=== PATIENT | male | born 1935 | race Caucasian/White ===

== ENCOUNTER 2017-03-13 20:48 | Inpatient (IN) ==
[2017-03-13] MEDS ORDERED: Ipratropium/Albuterol Neb 3 ML IH STA (23:21)
[2017-03-13] MEDS ORDERED: Naloxone 0.4 MG/ML INJ IVP PRN (23:24)
--- NOTE | 2017-03-13 23:24 | Internal Med History&Physical ---
Date of Encounter: 03/13/17 Time of Encounter: 23:24 Assessment and Plan (1) Acute exacerbation of chronic obstructive pulmonary disease (COPD) Current visit: Yes Status: Acute Treat with the nebs, Solu-Medrol, mucinex and azithromycin. Will consult line installer, for further advice and outpatient follow up. (2) Acute respiratory failure with hypoxia Current visit: Yes Status: Acute Secondary to acute exacerbation of COPD. Treat with Oxygen, and treat COPD exacerbation. He will need to be evaluated for home oxygen, prior to discharge (3) Hypertension Current visit: Yes Status: Chronic COntinue home medications, after the meds verified Qualifiers: Hypertension type: essential hypertension Qualified Code(s): I10 - Essential (primary) hypertension (4) Diabetes mellitus Current visit: Yes Status: Chronic sliding scale insulin Qualifiers: Diabetes mellitus type: type 2 Diabetes mellitus complication status: with unspecified complications Diabetes mellitus skilled nursing insulin use: without side show entertainer use Qualified Code(s): E11.8 - Type 2 diabetes mellitus with unspecified complications (5) DVT prophylaxis Current visit: Yes Status: Acute [facility] Internal Medicine - H&P: HPI Chief complaint: Shortness of breath Admitted From: Emergency Dept Plans for Post Hospital Care: Home History of present illness: Mr. White is a 82 year old male With past medical h/o COPD for several years ( ex-smoker, prior h/o exposure to paint spray) does not follow with line installer / [facility], [facility]N, diabetes. He presents to the ER at [facility] with h/o shortness of breath since this morning. Shortness of breath at rest, associated with wheezing, cough with whitish sputum. He denies chest pain, fever, chills, nausea, vomiting, abdominal pain, dysuria, hematuria, changes in bowel habits. Patient was treated in route with Solu-Medrol and 1 DuoNeb. He was evaluated in the ER - pulse ox was in the 70s. He was treated with levofloxacin, azithromycin, duonebs. He was treated with BiPAP, with improvement of symptoms. He is admitted to the hospitalist service for further management. Past Med Surg Social Fam HX - Past Medical History Medical history: COPD, diabetes, hyperlipidemia, hypertension, other Psychiatric history: anxiety, depression - Social History Smoking Status: Former smoker Smokeless Tobacco Status: No Alcohol use: occasionally, recent Drug use: none - Additional Family History Additional family history: Family Hx reviewed and is non-contributory to current admission Internal Medicine - H&P: Meds Albuterol Sulfate [Albuterol Inhaler] 2 puff IH Q4HR 01/18/16 [History] Ascorbic Acid [Vitamin C] 1,000 mg PO DAILY 01/18/16 [History] Atorvastatin [Lipitor] 40 mg PO HS 01/18/16 [History] Cholecalciferol (Vitamin D3) [Vitamin D] 1,000 unit PO DAILY 01/18/16 [History] Fluticasone/Salmeterol [Advair 500-50 Diskus] 1 each IH BID 01/18/16 [History] Formoterol Fumarate [Foradil] 12 mcg IH BIDR 01/18/16 [History] Ipratropium/Albuterol Neb [Duoneb] 3 ml IH Q6HR 01/18/16 [History] Naproxen Sodium [Aleve] 220 mg PO BID 01/18/16 [History] Ruth-3/Dha/Epa/Fish Oil [Fish Oil] 1,000 mg PO BID 01/18/16 [History] Vitamin E (Dl,Tocopheryl Acet) [Vitamin E] 400 unit PO DAILY 01/18/16 [History] amLODIPine [Norvasc] 10 mg PO DAILY 01/18/16 [History] Allergies Penicillins Allergy (Verified 01/22/17 22:38) See Comments All Systems PM: A 10-system review of systems was performed and is negative for pertinent findings except as documented above in the HPI. - Constitutional Vitals: Temp Pulse Resp BP 98.1 F 102 26 141/77 03/13/17 22:13 03/13/17 22:13 03/13/17 22:13 03/13/17 22:13 Exam: General: Not in acute pain at the time of my evaluation. Tachypneic HEENT: Oral mucosa is moist. No conjunctival palor or scleral icterus Neck: No obvious neck swellings Lungs: B/L air entry present. Occasional wheeze present Cardiac: Regular rate and rhythm. No significant murmurs Abdomen: Soft, non tender. Bowel sounds present Genitourinary: No mills catheter Neurological: Alert and oriented. No gross localizing deficits Psych: Not aggressive or agitated Extremities: B/L leg edema present Skin: No generalized rash Internal Med - H&P Results - Labs CBC & Chem 7: 03/14/17 02:59 03/14/17 02:59 Labs: Labs reviewed. Normal CBC, BMP - EKG Data -: EKG Interpreted by Myself EKG shows normal: sinus rhythm Rate: tachycardia - Impressions Chest x-ray reported emphysema. No acute confluent pneumonia
[2017-03-13] MEDS ORDERED: Albuterol 2.5 MG/3 ML NEBULIZER IH PRN (23:30)
[2017-03-14] MEDS: methylPREDNISolone 125 MG/2 ML VIAL IVP SCH ×4 (00:18→23:59)
[2017-03-14] MEDS ORDERED: *HR* LORazepam 2 MG/ML VIAL IVP ONE (00:46)
[2017-03-14] MEDS ORDERED: Dextrose Gel 15 GM PO PRN ×2 (00:48)
[2017-03-14] MEDS ORDERED: *HR* Dextrose 50 % in Water (Syg) 50 ML SYRINGE IVP PRN (00:48)
[2017-03-14] MEDS ORDERED: D5% in Water 1,000 ML IVC PRN (00:48)
[2017-03-14 03:51] LABS: Basophils % 0.1 %; Hematocrit 35.6 % (37.5-50.1); Hemoglobin 12.1 g/dL (12.9-16.9); Immature Granulocytes % 0.6 % (0-4); Lymphocytes # 0.3 K/mcL (0.6-4.6); Lymphocytes % 2.8 %; Mean Corpuscular Hemoglobin 30.6 pg (28.0-33.3); Mean Corpuscular Volume 90.1 fL (83.0-100.0); Mean Platelet Volume 9.6 fL (9.4-12.4); Monocytes # 0.1 K/mcL (0.0-1.3); Monocytes % 1.1 %; Neutrophils # 10.6 K/mcL (1.6-8.9); Platelet Count 218 K/mcL (140-400); Red Blood Count 3.95 M/mcL (4.19-5.50); Red Cell Distribution Width 13.9 % (11.5-14.5); Segmented Neutrophils % 95.4 %
[2017-03-14 04:10] LABS: BUN/Creatinine Ratio 20 (6-26); Blood Urea Nitrogen 24 mg/dL (8-26); Calcium 8.6 mg/dL (8.6-10.8); Carbon Dioxide 20 mEq/L (19-29); Chloride 106 mEq/L (98-109); Glucose 160 mg/dL (70-99); Magnesium 1.6 mg/dL (1.6-2.6); Osmolality,Calculated 287 (280-300); Sodium 135 mEq/L (136-145); eGFR For African Americans > 60 (> 60); eGFR For Non-African Americans 58 (> 60)
[2017-03-14] MEDS: Ipratropium/Albuterol Neb 3 ML IH SCH ×4 (05:04→23:33)
[2017-03-14] MEDS: *HR* Enoxaparin 40 MG/0.4 ML SYRINGE SQ SCH (06:39)
[2017-03-14] MEDS: Insulin LISPRO 300 UNITS/3 ML VIAL SQ SCH ×3 (08:51→16:22)
--- NOTE | 2017-03-14 15:39 | Internal Med Progress Note ---
<Ruddy Shea - Last Filed: 03/14/17 15:36> Date of Encounter: 03/14/17 Time of Encounter: 09:00 - Assessment and plan (1) Acute respiratory failure with hypoxia Current Visit: Yes Status: Acute Assessment and plan: Patient is known history of COPD for which she uses Symbicort and albuterol inhalers at home. He is not on home oxygen. He was admitted to the emergency department with oxygen saturation of 70%. He required BiPAP initially was treated with Solu-Medrol and DuoNeb scheduled started on azithromycin for antibiotic coverage. He is now on 3 L nasal cannula oxygen and improving. Plan: - Continue scheduled DuoNeb's and albuterol inhalers - Continue Symbicort - Continue azithromycin antibiotic coverage - Continue to wean oxygen as tolerated - Continue IV Solu-Medrol (2) Acute exacerbation of chronic obstructive pulmonary disease (COPD) Current Visit: Yes Status: Acute Assessment and plan: Patient is ex-smoker prior history to spray paints. No history of COPD for which she is treated in the outpatient setting for. - Patient states this is for COPD exacerbation requiring hospitalization Plan: - Continue treatment as above (3) Hypertension Current Visit: Yes Status: Chronic Assessment and plan: Current blood pressures are stable. Plan: Restart home dose of amlodipine. Qualifiers: Hypertension type: essential hypertension Qualified Code(s): I10 - Essential (primary) hypertension (4) Diabetes mellitus Current Visit: Yes Status: Chronic Assessment and plan: Current glucose is stable. Gabbi hyperglycemia after starting IV Solu-Medrol, will address effectively. Plan: - Continue before meals and at bedtime glucose checks - Continue low-dose insulin sliding scale and adjust as necessary. Qualifiers: Diabetes mellitus type: type 2 Diabetes mellitus complication status: with unspecified complications Diabetes mellitus buttermaker continuous churn insulin use: without fci use Qualified Code(s): E11.8 - Type 2 diabetes mellitus with unspecified complications (5) DVT prophylaxis Current Visit: Yes Status: Acute Assessment and plan: Lovenox 40 mg subcutaneous daily - Subjective Interval history: Mr. White 82-year-old male known history of COPD he has been seen and evaluated patient bedside this morning. He is in stable condition with no acute distress. He does feel short of breath but feels much improved since admission. He says he has never experienced symptoms like this before but did have dyspnea, increased sputum production which was clear and white and continues to have occasional sputum production. He denies any nausea vomiting diarrhea constipation or any chest pain. He is tolerating current therapy and is at 3 L of nasal cane oxygen which he says he is not on any home oxygen prior. He does uses Symbicort inhaler as prescribed twice a day. He has a albuterol nebulizer home which she uses occasionally. - Constitutional Vitals: Temp Pulse Resp BP Pulse Ox 98.1 F 98 20 157/67 94 03/14/17 11:10 03/14/17 11:10 03/14/17 11:27 03/14/17 11:10 03/14/17 11:27 Exam: General: Patient alert, awake, oriented 3, interactive, in no acute distress HEENT: Normocephalic, atraumatic, pupils equal reactive to light, nasal cavity patent and open septum median position, oral mucosa moist, uvula midline, neck supple trachea midline no palpable lymphadenopathy, no thyromegaly. Chest: Symmetric bilateral correlating with respiratory effort, effort nonlabored. Cardiac: Regular rate and rhythm, positive S1, S2, no bruits appreciated bilateral carotids, Radial pulses 2+ bilateral, posterior tibial and dorsal pedal pulses 2+ bilateral. Respiratory: Diffusely diminished bronchovesicular breath sounds with mild expiratory wheeze. Abdomen: Soft, nontender, positive bowel sounds, no palpable masses appreciated on examination Extremities: Symmetric bilateral, no erythema or edema, patient moving all 4 extremities spontaneously. Neurologic: No focal deficits appreciated on examination. Face symmetric, muscle strength symmetric bilateral upper and lower extremities. Internal Medicine: Result - Labs CBC & Chem 7: 03/14/17 02:59 03/14/17 02:59 Labs: Short CBC 03/14/17 Range/Units 02:59 WBC 11.1 (4.3-11.1) K/mcL Hgb 12.1 L D (12.9-16.9) g/dL Hct 35.6 L (37.5-50.1) % Plt Count 218 (140-400) K/mcL Neutrophils # 10.6 H (1.6-8.9) K/mcL BMP 03/14/17 02:59 Sodium 135 L Potassium 4.0 Chloride 106 Carbon Dioxide 20 BUN 24 Creatinine 1.20 Glucose 160 H Calcium 8.6 Consult Discharge Plan - Plan Referrals: Tim Perez MD [Primary Care Provider] - <Leif Lozano P - Last Filed: 03/14/17 17:28> Date of Encounter: 03/14/17 - Constitutional Vitals: Temp Pulse Resp BP Pulse Ox 97.6 F 110 16 181/77 96 03/14/17 16:22 03/14/17 16:22 03/14/17 16:22 03/14/17 16:22 03/14/17 16:22 Internal Medicine: Result - Labs CBC & Chem 7: 03/14/17 02:59 03/14/17 02:59 Labs: Short CBC 03/14/17 Range/Units 02:59 WBC 11.1 (4.3-11.1) K/mcL Hgb 12.1 L D (12.9-16.9) g/dL Hct 35.6 L (37.5-50.1) % Plt Count 218 (140-400) K/mcL Neutrophils # 10.6 H (1.6-8.9) K/mcL BMP 03/14/17 02:59 Sodium 135 L Potassium 4.0 Chloride 106 Carbon Dioxide 20 BUN 24 Creatinine 1.20 Glucose 160 H Calcium 8.6 - Attending Attestation I examined this patient and my medical decision-making was reviewed with the AUTOMATIC EDGER/PA/Advanced Practice Nurse/Resident Physician. I agree with the documented findings, disposition and treatment plan as described except to the extent set forth below.
[2017-03-14] MEDS: Budesonide/Formoterol 160/4.5 MDI IH SCH ×2 (16:01→23:33)
[2017-03-14] MEDS: amLODIPine 5 MG TABLET PO SCH (16:22)
[2017-03-14] MEDS: Azithromycin 250 MG TABLET PO SCH (20:17)
[2017-03-14] MEDS ORDERED: Insulin LISPRO 300 UNITS/3 ML VIAL SQ SCH (21:00)
[2017-03-15] MEDS: Ipratropium/Albuterol Neb 3 ML IH SCH ×2 (04:49→10:39)
[2017-03-15 04:57] LABS: Basophils % 0.1 %; Hematocrit 36.4 % (37.5-50.1); Lymphocytes # 0.4 K/mcL (0.6-4.6); Lymphocytes % 2.6 %; Mean Corpuscular Hemoglobin 30.2 pg (28.0-33.3); Mean Corpuscular Volume 91.5 fL (83.0-100.0); Mean Platelet Volume 9.6 fL (9.4-12.4); Monocytes # 0.6 K/mcL (0.0-1.3); Monocytes % 3.5 %; Neutrophils # 14.7 K/mcL (1.6-8.9); Platelet Count 228 K/mcL (140-400); Red Blood Count 3.98 M/mcL (4.19-5.50); Segmented Neutrophils % 92.8 %
[2017-03-15 05:19] LABS: Alanine Aminotransferase 21 Units/L (0-55); Albumin 3.5 g/dL (3.5-5.0); Albumin/Globulin Ratio 1.1 (1.1-2.2); Alkaline Phosphatase 53 Units/L (38-126); Aspartate Amino Transferase 47 Units/L (5-34); BUN/Creatinine Ratio 27 (6-26); Bilirubin,Total 0.2 mg/dL (0.2-1.2); Calcium 9.5 mg/dL (8.6-10.8); Carbon Dioxide 20 mEq/L (19-29); Chloride 108 mEq/L (98-109); Globulin 3.1 g/dL (2.4-3.5); Glucose 146 mg/dL (70-99); Osmolality,Calculated 295 (280-300); Sodium 137 mEq/L (136-145); Total Protein 6.6 g/dL (6.0-8.3); eGFR For African Americans > 60 (> 60); eGFR For Non-African Americans 52 (> 60)
[2017-03-15 05:21] LABS: Blood Urea Nitrogen 35 mg/dL (8-26)
[2017-03-15] MEDS: *HR* Enoxaparin 40 MG/0.4 ML SYRINGE SQ SCH (06:03)
[2017-03-15] MEDS: methylPREDNISolone 125 MG/2 ML VIAL IVP SCH (08:18)
[2017-03-15] MEDS: amLODIPine 5 MG TABLET PO SCH (08:19)
[2017-03-15] MEDS: Azithromycin 250 MG TABLET PO SCH (08:19)
--- NOTE | 2017-03-15 08:26 | Internal Med Progress Note ---
<Ruddy Shea - Last Filed: 03/15/17 08:40> Date of Encounter: 03/15/17 Time of Encounter: 08:25 - Assessment and plan (1) Acute respiratory failure with hypoxia Current Visit: Yes Status: Acute Assessment and plan: Patient is known history of COPD for which she uses Symbicort and albuterol inhalers at home. He is not on home oxygen. He was admitted to the emergency department with oxygen saturation of 70%. He required BiPAP initially was treated with Solu-Medrol and DuoNeb scheduled started on azithromycin for antibiotic coverage. He is now on 3 L nasal cannula oxygen and improving. 03/15/2017: Patient improving clinically, decreased oxygen requirements. Chest x-ray does not show any acute findings of pneumonia, patient does have an elevated WBC count but this is also in the setting of IV Solu-Medrol. The patient denies fevers, chills, sweating or chest discomfort. Patient ambulating in room. Would like to walk in the halls today. Plan: - Continue scheduled DuoNeb's and albuterol inhalers - Continue Symbicort - Continue azithromycin antibiotic coverage - Continue to wean oxygen as tolerated - Continue IV Solu-Medrol (2) Acute exacerbation of chronic obstructive pulmonary disease (COPD) Current Visit: Yes Status: Acute Assessment and plan: Patient is ex-smoker prior history to spray paints. No history of COPD for which she is treated in the outpatient setting for. - Patient states this is for COPD exacerbation requiring hospitalization Plan: - Continue treatment as above (3) Hypertension Current Visit: Yes Status: Chronic Assessment and plan: Current blood pressures are stable. Plan: Continue home dose amlodipine Qualifiers: Hypertension type: essential hypertension Qualified Code(s): I10 - Essential (primary) hypertension (4) Diabetes mellitus Current Visit: Yes Status: Chronic Assessment and plan: Current glucose is stable. Glucose roughly 128 this morning, currently on IV Solu-Medrol will continue to monitor carefully. Plan: - Continue before meals and at bedtime glucose checks - Continue low-dose insulin sliding scale and adjust as necessary. Qualifiers: Diabetes mellitus type: type 2 Diabetes mellitus complication status: with unspecified complications Diabetes mellitus penitentiary insulin use: without penitentiary use Qualified Code(s): E11.8 - Type 2 diabetes mellitus with unspecified complications (5) DVT prophylaxis Current Visit: Yes Status: Acute Assessment and plan: Lovenox 40 mg subcutaneous daily - Subjective Interval history: Mr. White 82-year-old male known history of COPD he has been seen and evaluated patient bedside this morning. He is in stable condition with no acute distress. He feels that his breathing is much improved compared to yesterday, tolerating inhalers and IV steroids. He denies any fevers chills nausea vomiting diarrhea or sweating. He has no other concerns. He does have a cough which is not productive at this time. He is tolerating oral intake but is limiting his oral intake due to wanting to lose a little bit of weight. He said that he went to his primary care provider recently to try to obtain a oxygen tank because he feels short of breath with walking. He said that if he needs an oxygen tank at the time of discharge she would like to have one. Otherwise he is hoping to go home soon. - Constitutional Vitals: Temp Pulse Resp BP Pulse Ox 97.7 F 85 20 121/71 90 03/15/17 07:42 03/15/17 07:42 03/15/17 07:42 03/15/17 07:42 03/15/17 07:42 Exam: General: Patient alert, awake, oriented 3, interactive, in no acute distress HEENT: Normocephalic, atraumatic, pupils equal reactive to light, nasal cavity patent and open septum median position, oral mucosa moist, uvula midline, neck supple trachea midline no palpable lymphadenopathy, no thyromegaly. Chest: Symmetric bilateral correlating with respiratory effort, effort nonlabored. Cardiac: Regular rate and rhythm, positive S1, S2, no bruits appreciated bilateral carotids, Radial pulses 2+ bilateral, posterior tibial and dorsal pedal pulses 2+ bilateral. Respiratory: Clear to auscultation bilaterally. Abdomen: Soft, nontender, positive bowel sounds, no palpable masses appreciated on examination Extremities: Symmetric bilateral, no erythema or edema, patient moving all 4 extremities spontaneously. Neurologic: No focal deficits appreciated on examination. Face symmetric, muscle strength symmetric bilateral upper and lower extremities. Internal Medicine: Result - Labs CBC & Chem 7: 03/15/17 04:10 03/15/17 04:10 Labs: Short CBC 03/15/17 Range/Units 04:10 WBC 15.8 H (4.3-11.1) K/mcL Hgb 12.0 L (12.9-16.9) g/dL Hct 36.4 L (37.5-50.1) % Plt Count 228 (140-400) K/mcL Neutrophils # 14.7 H (1.6-8.9) K/mcL BMP 03/15/17 04:10 Sodium 137 Potassium 4.0 Chloride 108 Carbon Dioxide 20 BUN 35 H D Creatinine 1.31 H Glucose 146 H Calcium 9.5 Liver Function 03/15/17 Range/Units 04:10 Total Bilirubin 0.2 (0.2-1.2) mg/dL AST 47 H (5-34) Units/L ALT 21 (0-55) Units/L Alkaline Phosphatase 53 (38-126) Units/L Albumin 3.5 (3.5-5.0) g/dL Consult Discharge Plan - Plan Instructions: Prednisone (By mouth), Levofloxacin (By mouth), Budesonide/ Formoterol (By breathing), Acute Respiratory Distress Syndrome (DC), Chronic Obstructive Pulmonary Disease (DC) Additional Instructions: 1. Follow-up with your primary care provider in the next 3-5 days 2. Take all prescriptions as prescribed, any concerns or questions contact her primary care provider. 3. Return to the emergency department if: Referrals: Tim Perez MD [Primary Care Provider] - 03/25/17 10:30 am Prescriptions: Budesonide/Formoterol 160/4.5 [Symbicort 160/4.5] 2 puff IH BIDR #1 inhaler levoFLOXacin [Levaquin] 750 mg PO DAILY #6 tablet predniSONE [PredniSONE] 40 mg PO DAILY #5 tablet <Leif Lozano P - Last Filed: 03/15/17 12:28> Date of Encounter: 03/15/17 - Constitutional Vitals: Temp Pulse Resp BP Pulse Ox 97.3 F L 98 16 129/68 94 03/15/17 11:00 03/15/17 11:00 03/15/17 11:00 03/15/17 11:00 03/15/17 11:00 Internal Medicine: Result - Labs CBC & Chem 7: 03/15/17 04:10 03/15/17 04:10 Labs: Short CBC 03/15/17 Range/Units 04:10 WBC 15.8 H (4.3-11.1) K/mcL Hgb 12.0 L (12.9-16.9) g/dL Hct 36.4 L (37.5-50.1) % Plt Count 228 (140-400) K/mcL Neutrophils # 14.7 H (1.6-8.9) K/mcL BMP 03/15/17 04:10 Sodium 137 Potassium 4.0 Chloride 108 Carbon Dioxide 20 BUN 35 H D Creatinine 1.31 H Glucose 146 H Calcium 9.5 Liver Function 03/15/17 Range/Units 04:10 Total Bilirubin 0.2 (0.2-1.2) mg/dL AST 47 H (5-34) Units/L ALT 21 (0-55) Units/L Alkaline Phosphatase 53 (38-126) Units/L Albumin 3.5 (3.5-5.0) g/dL - Attending Attestation I examined this patient and my medical decision-making was reviewed with the HAMMERER/PA/Advanced Practice Nurse/Resident Physician. I agree with the documented findings, disposition and treatment plan as described except to the extent set forth below.
[2017-03-15] MEDS: Insulin LISPRO 300 UNITS/3 ML VIAL SQ SCH ×2 (08:29→11:34)
--- NOTE | 2017-03-15 09:42 | Discharge Summary ---
<Ruddy Shea - Last Filed: 03/15/17 09:45> Date of Encounter: 03/15/17 Time of Encounter: 09:40 - Discharge Diagnosis (1) Acute respiratory failure with hypoxia Priority: Primary Status: Acute (2) Acute exacerbation of chronic obstructive pulmonary disease (COPD) Priority: Primary Status: Acute (3) Hypertension Priority: Secondary Status: Chronic Qualifiers: Hypertension type: essential hypertension Qualified Code(s): I10 - Essential (primary) hypertension (4) Diabetes mellitus Priority: Secondary Status: Chronic Qualifiers: Diabetes mellitus type: type 2 Diabetes mellitus complication status: with unspecified complications Diabetes mellitus fdc insulin use: without fdc use Qualified Code(s): E11.8 - Type 2 diabetes mellitus with unspecified complications (5) DVT prophylaxis Priority: Secondary Status: Acute - Discharge Medications Prescriptions: Budesonide/Formoterol 160/4.5 [Symbicort 160/4.5] 2 puff IH BIDR #1 inhaler levoFLOXacin [Levaquin] 750 mg PO DAILY #6 tablet predniSONE [PredniSONE] 40 mg PO DAILY #5 tablet Home Medications: Albuterol Sulfate [Albuterol Inhaler] 2 puff IH Q4HR 01/18/16 [History] Ascorbic Acid [Vitamin C] 1,000 mg PO DAILY 01/18/16 [History] Cholecalciferol (Vitamin D3) [Vitamin D3] 1,000 unit PO DAILY 01/18/16 [History] Ipratropium/Albuterol Neb [Duoneb] 3 ml IH Q6HR 01/18/16 [History] Naproxen Sodium [Aleve] 220 mg PO BID PRN 01/18/16 [History] Beaman-3/Dha/Epa/Fish Oil [Fish Oil Dr 500 mg Softgel] 1,000 mg PO BID 01/18/16 [ History] Vitamin E (Dl,Tocopheryl Acet) [Vitamin E] 400 unit PO DAILY 01/18/16 [History] amLODIPine [Norvasc] 10 mg PO DAILY 01/18/16 [History] Citalopram Hydrobromide [Citalopram HBr] 10 mg PO DAILY 03/14/17 [History] Budesonide/Formoterol 160/4.5 [Symbicort 160/4.5] 2 puff IH BIDR #1 inhaler [Rx] levoFLOXacin [Levaquin] 750 mg PO DAILY #6 tablet 03/15/17 [Rx] predniSONE [PredniSONE] 40 mg PO DAILY #5 tablet 03/15/17 [Rx] Allergies/Adverse Reactions: Allergies Penicillins Allergy (Verified 01/22/17 22:38) See Comments Date of admission: 03/13/17 21:58 Primary care physician: Tim Perez MD Consults: 03/13/17 23:30 Consult to Pulmonology [CONS] Routine Consulting Provider: [facility] [place] Reason for Consult: Acute resp failure; COPD exacerbation Call Completed: No Discharging clinician: Ruddy Shea Anticipated date of discharge: 03/15/17 - Patient Status Disposition: Home, Self-Care Condition: Good Functional capacity at discharge: independent ambulation Overall status at discharge: patient is progressing back to baseline - Discharge Instructions Instructions: Prednisone (By mouth), Levofloxacin (By mouth), Budesonide/ Formoterol (By breathing), Acute Respiratory Distress Syndrome (DC), Chronic Obstructive Pulmonary Disease (DC) Follow Up With: Tim Perez MD [Primary Care Provider] - 03/25/17 10:30 am Additional Instructions: 1. Follow-up with your primary care provider in the next 3-5 days 2. Take all prescriptions as prescribed, any concerns or questions contact her primary care provider. 3. Return to the emergency department if: - Diet and Activity Activity: increase activity as tolerated Diet: diabetic diet, low salt diet Interval History: Mr. White 82-year-old male with known history of COPD, type 2 diabetes and hyperlipidemia was admitted to [facility] after he was found to be hypoxic with oxygen saturations in the 70s in the emergency department. He was placed on 3 L nasal Oxygen and admitted to the general medical floor. Chest x-ray was obtained that did not demonstrate any gross findings. He was treated with nebulizers, IV steroids and antibiotics for COPD exacerbation for which she responded well. Does not patient stay he clinically improved, oxygen requirements decreased and otherwise remained stable. His vitals remained stable throughout his inpatient stay. His WBC count elevated after starting IV steroids but he was asymptomatic otherwise. On 03/15/2017 he was seen about a patient bedside and deemed stable for discharge with home prednisone for a total of 5 days, by mouth Levaquin for 6 remaining days of antibiotic coverage, a prescription was provided for Symbicort and he qualified for home oxygen as his oxygen saturations dropped to 86% with ambulation. Hospital course: Mr. White is a 82 year old male - Time Spent with Patient Total time spent providing and/or coordinating discharge services: - Constitutional Vitals: Temp Pulse Resp BP Pulse Ox 97.7 F 85 20 121/71 94 03/15/17 07:42 03/15/17 07:42 03/15/17 07:42 03/15/17 07:42 03/15/17 09:23 Exam: General: Patient alert, awake, oriented 3, interactive, in no acute distress HEENT: Normocephalic, atraumatic, pupils equal reactive to light, nasal cavity patent and open septum median position, oral mucosa moist, uvula midline, neck supple trachea midline no palpable lymphadenopathy, no thyromegaly. Chest: Symmetric bilateral correlating with respiratory effort, effort nonlabored. Cardiac: Regular rate and rhythm, positive S1, S2, no bruits appreciated bilateral carotids, Radial pulses 2+ bilateral, posterior tibial and dorsal pedal pulses 2+ bilateral. Respiratory: Clear to auscultation bilaterally. Abdomen: Soft, nontender, positive bowel sounds, no palpable masses appreciated on examination Extremities: Symmetric bilateral, no erythema or edema, patient moving all 4 extremities spontaneously. Neurologic: No focal deficits appreciated on examination. Face symmetric, muscle strength symmetric bilateral upper and lower extremities. <Leif Lozano P - Last Filed: 03/15/17 12:27> Date of Encounter: 03/15/17 Date of admission: 03/13/17 21:58 Primary care physician: Tim Perez MD Consults: 03/13/17 23:30 Consult to Pulmonology [CONS] Routine Consulting Provider: [facility]m [facility] [place] Reason for Consult: Acute resp failure; COPD exacerbation Call Completed: No Hospital course: Mr. White is a 82 year old male - Time Spent with Patient Total time spent providing and/or coordinating discharge services: - Constitutional Vitals: Temp Pulse Resp BP Pulse Ox 97.3 F L 98 16 129/68 94 03/15/17 11:00 03/15/17 11:00 03/15/17 11:00 03/15/17 11:00 06/27/17 11:00 - Attending Attestation I examined this patient and my medical decision-making was reviewed with the SCHOOL ADJUSTMENT COUNSELOR/PA/Advanced Practice Nurse/Resident Physician. I agree with the documented findings, disposition and treatment plan as described except to the extent set forth below. follow up with PCP and Pulmonary
[2017-03-15] MEDS: Budesonide/Formoterol 160/4.5 MDI IH SCH (10:39)
[2017-03-15 11:23] VITALS: BP 129/68
== END 2017-03-15 15:47 | disposition home or self-care (01) | DRG 189 ==
LOC: 2NENU → OBSVTOIN 21:58
PROVIDERS: ADMIT Internal Medicine; ATTEND Internal Medicine

== ENCOUNTER 2018-05-31 11:34 | Inpatient (IN) ==
[2018-05-31] MEDS ORDERED: Naloxone 0.4 MG/ML INJ IVP PRN (18:17)
[2018-05-31 19:10] LABS: Basophils # 0.1 K/mcL (0.0-0.2); Basophils % 0.7 %; Eosinophils # 0.2 K/mcL (0.0-0.6); Eosinophils % 1.8 %; Hematocrit 18.6 % (37.5-50.1); Immature Granulocytes % 0.7 % (0-4); Lymphocytes # 0.9 K/mcL (0.6-4.6); Lymphocytes % 10.1 %; Mean Corpuscular HGB Conc 32.3 g/dL (31.6-35.5); Mean Corpuscular Hemoglobin 30.5 pg (28.0-33.3); Mean Corpuscular Volume 94.4 fL (83.0-100.0); Mean Platelet Volume 9.4 fL (9.4-12.4); Monocytes # 0.8 K/mcL (0.0-1.3); Monocytes % 8.5 %; Neutrophils # 7.1 K/mcL (1.6-8.9); Platelet Count 238 K/mcL (140-400); Red Blood Count 1.97 M/mcL (4.19-5.50); Red Cell Distribution Width 14.9 % (11.5-14.5); Segmented Neutrophils % 78.2 %
[2018-05-31] MEDS: Budesonide/Formoterol 160/4.5 1 PUFF INH IH SCH (19:52)
[2018-05-31] MEDS: Ipratropium/Albuterol Neb 3 ML IH PRN (19:52)
[2018-05-31] MEDS ORDERED: Pantoprazole 40 MG VIAL IVP ONE (19:55)
[2018-05-31] MEDS: 0.9 % Sodium Chloride 1,000 ML IVC SCH (19:57)
[2018-05-31] MEDS: Pantoprazole 40 MG in 0.9 % Sodium Chloride Mini Bag 100 ML IVC SCH (19:57)
[2018-05-31] MEDS ORDERED: *HR* Promethazine 25 MG/ML VIAL IVP PRN (19:59)
[2018-05-31] MEDS ORDERED: *HR* LORazepam 2 MG/ML VIAL IVP PRN ×3 (19:59)
--- NOTE | 2018-05-31 20:07 | Internal Med History&Physical ---
<Terrence Delacruz - Last Filed: 05/31/18 20:02> Date of Encounter: 05/31/18 Time of Encounter: 20:02 Internal Medicine - H&P: HPI Chief complaint: sob Admitted From: Hospital to Hospital Transfer Plans for Post Hospital Care: Home History of present illness: Mr. White is a 83 year old male presents with chief complaint of shortness of breath which started last Tuesday and has progressively worsened. Patient denies fevers, chills cough, sputum production. Reports last Tuesday he was in his garage, drinking beer around 11 AM when he passed out. He does not remember passing out or the events before and after passing out. Does not know how long he was passed out for. He states that he called his (which he does not remember) who then called his neighbor. Patient's neighbor found him passed out as garage. He had "1 gallon" of black vomit during this time too. He denies tongue biting, loss of bowel or bladder function. Reports hitting his head. He was taken to [facility]. EMR records show patient was evaluated for upper extremity injury, lip abrasion (left elbow). CT head at that time was negative. After the patient was taken home. He reports his shortness of breath continued to worsen. And this morning he was unable to walk even 5 feet without becoming short of breath. He also feels fatigued, tired. He states few days ago he did have multiple black bowel movements. He denies being on iron supplementation. He denies ever having GI bleeds or blood transfusions in the past. had colonoscopy over 10 years ago and said it was normal. He has never had a EGD. He takes Aleve daily for joint pain. Patient is not on a blood thinner, aspirin. At [facility] patient's hemoglobin was noted to be 6.0 and patient was transferred to [facility] for further care. Past Med Surg Social Fam HX - Past Medical History Medical history: COPD, diabetes, hyperlipidemia, hypertension, other Additional medical history: hypoglycemia Psychiatric history: anxiety, depression - Past Surgical History Additional surgical history: shoulder replacement - Social History Smoking Status: Former smoker Smokeless Tobacco Status: No Alcohol use: occasionally, recent Drug use: none - Family History Father History Unknown: Yes Living Status: Age at : 90 Cause of : heart attack Hx Family Cardiac Disorders: Yes Hx Family Respiratory Disorders: Yes Hx Family Cancer: No Hx Family GI Disorders: Yes Hx Family Genitourinary Disorders: Yes Hx Family Endocrine Disorder: No Hx Family Musculoskeletal Disorders: No Hx Family Neuromuscular Disorders: No Hx Family Neurologic Disorders: No Hx Family HEENT Disorders: No Hx Family Autoimmune Disorders: No Hx Family Reproductive Disorders: No Hx Family Psychosocial Disorders: No Hx Family Medical Disorders: No Mother Age at : 94 Cause of : heart attack Hx Family Cardiac Disorders: Yes Hx Family Respiratory Disorders: Yes Hx Family Cancer: No Hx Family GI Disorders: Yes Hx Family Genitourinary Disorders: Yes Internal Medicine - H&P: Meds Albuterol Sulfate [Albuterol Inhaler] 2 puff IH Q6H PRN 01/18/16 [History] Ascorbic Acid [Vitamin C] 1,000 mg PO DAILY 01/18/16 [History] Ipratropium/Albuterol Neb [Duoneb] 3 ml IH Q6HR PRN 01/18/16 [History] Naproxen Sodium [Aleve] 220 mg PO BID 01/18/16 [History] amLODIPine [Norvasc] 10 mg PO DAILY 01/18/16 [History] Budesonide/Formoterol 160/4.5 [Symbicort 160/4.5] 2 puff IH BID 05/31/18 [ History] Ergocalciferol (VITAMIN D2) [Vitamin D2] 50,000 unit PO MO 05/31/18 [History] 3 Allergy/AdvReac Type Severity Reaction Status Date / Time Penicillins Allergy See Verified 05/31/18 16:56 Comments All Systems PM: A 10-system review of systems was performed and is negative for pertinent findings except as documented above in the HPI. Review of systems: Constitutional: Denies fever, chills HEENT: Denies headache, trauma, blurry vision, eye discharge, ear pain, ear discharge neck pain, sore throat, rhinorrhea Heart: Denies chest pain palpitations, LE edema Lungs: Poor shortness of breath. Denies cough Abdomen: Denies abdominal pain nausea vomiting diarrhea, hematochezia. Reports melena and coffee ground emesis MSK: Denies back pain, falls, joint pain Kidney: Denies dysuria, hematuria Skin: Denies rash, ulcers Neuro: Denies numbness and tingling Psych: denies axniety, depression - Constitutional Vitals: Temp Pulse Resp BP Pulse Ox 97.8 F 78 12 127/63 98 05/31/18 14:24 05/31/18 14:24 05/31/18 14:24 05/31/18 14:24 05/31/18 14:24 Exam: General: pleasant, anxious, mild distress HEENT: Head atraumatic, normocephalic, EOMI, PERRL, absent ear discharge or trauma, dry Mucous Membranes, uvula midline Neck: nontender to palpation, absent lymphadenopathy, Cardiovascualr: Regular rate and rhythm with no murmur, absent gallops or rubs, absent pedal edema, radial pulses 2 out of 4 Lungs: Clear to auscultation bilaterally, not in respiratory distress Abdomen: Soft nontender, nondistended positive bowel sounds, absent hepatomegaly Skin: warm and dry, absent rash, absent open wounds and nodules MSK: absent clubbing, cyanosis, joints without swelling Neuro: Cranial nerves II through XII intact, UE and LE sensation equal bilaterally, alert oriented 3, Psych: good insight and judgment Internal Med - H&P Results - Labs CBC & Chem 7: 05/31/18 18:30 Labs: Short CBC 05/31/18 Range/Units 18:30 WBC 9.1 (4.3-11.1) K/mcL Hgb 6.0 L* (12.9-16.9) g/dL Hct 18.6 L (37.5-50.1) % Plt Count 238 (140-400) K/mcL Neutrophils # 7.1 (1.6-8.9) K/mcL - Assessment and plan (1) GI bleed Current Visit: Yes Status: Acute Assessment and plan: 83 y/o male presents with acute gi bleed hgb was 6.3 (normal is 12) takes aleve daily at home for joint pain not on anticoagulation/antiplatelet Reports melena, coffee-ground emesis Plan: Transfuse 2 units packed red blood cells, Protonix GGT, IV fluids, GI consult,NPO, epcds Qualifiers: GI bleed type/associated pathology: unspecified gastrointestinal hemorrhage type Qualified Code(s): K92.2 - Gastrointestinal hemorrhage, unspecified (2) Hypertension Current Visit: Yes Status: Chronic Assessment and plan: patient BP is 127/63 currently holding BP meds due to concern for hypotension from GI bleed Qualifiers: Hypertension type: essential hypertension Qualified Code(s): I10 - Essential (primary) hypertension (3) DVT prophylaxis Current Visit: Yes Status: Acute Assessment and plan: epcd (4) Alcohol use Current Visit: Yes Status: Acute Assessment and plan: patient reports he drink alcohol occasionally he may drink 5 beers a night and then go a week without drinking last Tuesday when he passed out he reports he was drinking Will obtain ethanol level and start CIWA protocol. - Time Spent With Patient Total time spent is greater than 50% in coordination of care (as documented) at patient's floor/unit and/or counseling patient: <NadiaOscar - Last Filed: 05/31/18 20:34> Date of Encounter: 05/31/18 Internal Medicine - H&P: HPI History of present illness: Mr. White is a 83 year old male All Systems PM: A 10-system review of systems was performed and is negative for pertinent findings except as documented above in the HPI. - Constitutional Vitals: Temp Pulse Resp BP Pulse Ox 97.8 F 78 18 127/63 98 05/31/18 14:24 05/31/18 14:24 05/31/18 19:52 05/31/18 14:24 05/31/18 19:52 Internal Med - H&P Results - Labs CBC & Chem 7: 05/31/18 18:30 Labs: Short CBC 05/31/18 Range/Units 18:30 WBC 9.1 (4.3-11.1) K/mcL Hgb 6.0 L* (12.9-16.9) g/dL Hct 18.6 L (37.5-50.1) % Plt Count 238 (140-400) K/mcL Neutrophils # 7.1 (1.6-8.9) K/mcL - Assessment and plan (1) Hypertension Current Visit: Yes Status: Chronic Qualifiers: Hypertension type: essential hypertension Qualified Code(s): I10 - Essential (primary) hypertension (2) DVT prophylaxis Current Visit: Yes Status: Acute (3) GI bleed Current Visit: Yes Status: Acute Qualifiers: GI bleed type/associated pathology: unspecified gastrointestinal hemorrhage type Qualified Code(s): K92.2 - Gastrointestinal hemorrhage, unspecified (4) Alcohol use Current Visit: Yes Status: Acute - Time Spent With Patient Total time spent is greater than 50% in coordination of care (as documented) at patient's floor/unit and/or counseling patient: - Attending Attestation Gaudencio White is an 83 year old man with hypertension and moderate alcohol use who presents on transfer from [facility] where he presented to with the complaint of increasing shortness of breath and fatigue, found to have a Hgb of 6 from a baseline of 13. He states that he had episodes of dark bloody vomitus a few days ago and also dark stool, last occurring 2 days ago. Since then he has been weaker and even passed out at one point. It is noted that blood transfusion was not initiated prior to his transfer here. At this time he denies abdominal pain or chest discomfort, stating that he feels short of breath and very tired. He admits to taking 1 tablet of naproxen daily for joint aches but is not on aspirin. Physical exam remarkable for pale skin and mucous membranes, non-distended and non-tender abdomen, no peripheral edema, fine rales in both lung bases. Will admit for symptomatic anemia secondary to acute blood loss from upper GI bleed. Start IV NS for resuscitation, administer IV PPI bolus then continue with gtt. Transfuse 2U pRBC. Keep NPO and obtain GI consultation. Hold anti- hypertensives and use anti-embolic stockings for DVT prophylaxis.
[2018-05-31] MEDS ORDERED: 0.9 % Sodium Chloride 250 ML ONE (20:41)
[2018-06-01] MEDS ORDERED: 0.9 % Sodium Chloride 250 ML ONE (00:23)
[2018-06-01] MEDS: Pantoprazole 40 MG in 0.9 % Sodium Chloride Mini Bag 100 ML IVC SCH ×3 (00:27→10:11)
[2018-06-01 05:23] LABS: Basophils # 0.1 K/mcL (0.0-0.2); Basophils % 0.7 %; Eosinophils # 0.2 K/mcL (0.0-0.6); Eosinophils % 2.7 %; Immature Granulocytes % 0.6 % (0-4); Lymphocytes % 12.1 %; Mean Corpuscular HGB Conc 33.3 g/dL (31.6-35.5); Mean Corpuscular Hemoglobin 30.7 pg (28.0-33.3); Mean Corpuscular Volume 92.2 fL (83.0-100.0); Mean Platelet Volume 9.2 fL (9.4-12.4); Monocytes # 0.9 K/mcL (0.0-1.3); Monocytes % 11.5 %; Neutrophils # 5.9 K/mcL (1.6-8.9); Platelet Count 207 K/mcL (140-400); Red Blood Count 2.93 M/mcL (4.19-5.50); Red Cell Distribution Width 15.3 % (11.5-14.5); Segmented Neutrophils % 72.4 %
[2018-06-01] MEDS: 0.9 % Sodium Chloride 1,000 ML IVC SCH (05:34)
[2018-06-01 05:41] LABS: BUN/Creatinine Ratio 21 (6-26); Blood Urea Nitrogen 23 mg/dL (8-23); Calcium 8.2 mg/dL (8.6-10.3); Carbon Dioxide 23 mEq/L (23-29); Chloride 111 mEq/L (98-107); Glucose 95 mg/dL (70-105); Osmolality,Calculated 293 (280-300); Phosphorous 2.1 mg/dL (2.7-4.5); Potassium 4.1 mEq/L (3.5-5.1); Sodium 140 mEq/L (136-145); eGFR For Non-African Americans > 60 (> 60)
[2018-06-01] MEDS: Ipratropium/Albuterol Neb 3 ML IH PRN (08:05)
[2018-06-01] MEDS: Budesonide/Formoterol 160/4.5 1 PUFF INH IH SCH ×2 (08:05→19:26)
--- NOTE | 2018-06-01 08:19 | Internal Med Progress Note ---
<Rinku Moise - Last Filed: 06/01/18 14:01> Hospitalist Progress Note - Encounter Date of Encounter: 06/01/18 Time of Encounter: 09:30 - Subjective Interval History: Interval history: Admitted for Tuesday onset of coffee-ground emesis and tarry stools. [place] hgb of 6.0, s/p 2U after transfer to [facility]. 6.0->9.0. States only scope he has had was over 10 years ago for a colonoscopy showing a single small polyp, denies follow-up from that. CT head negative. Patient denies being on anticoagulation, he does take Aleve occasionally for joint pain. Former smoker. Current alcohol use (1-5 beers). At time of my evaluation, patient denies chest pain, syncope, dyspnea. He denies bloody urine. - Exam Vitals: Temp Pulse Resp BP Pulse Ox 97.8 F 80 18 142/71 97 06/01/18 07:33 06/01/18 07:33 06/01/18 08:08 06/01/18 07:33 06/01/18 08:08 Exam: General: pleasant, anxious, mild distress HEENT: Head atraumatic, normocephalic, EOMI, absent ear discharge or trauma, dry mucous membranes, uvula midline Neck: nontender to palpation, absent lymphadenopathy, Cardiovascualr: Regular rate and rhythm with no murmur, absent gallops or rubs, absent pedal edema, radial pulses 2 out of 4 Lungs: Clear to auscultation bilaterally, not in respiratory distress Abdomen: Soft nontender, nondistended positive bowel sounds, absent hepatomegaly Skin: warm and dry, absent rash, absent open wounds and nodules MSK: absent clubbing, cyanosis, joints without swelling Neuro: no slurring of speech, no facial asymmetry, no focal deficits Psych: good insight and judgment, answers questions appropraitely - Assessment and Plan (1) GI bleed Current Visit: Yes Status: Acute Assessment and Plan: s/p 2U pRBCs 6.0->9.0 GI consulted, plan for EGD today, he is NPO and on PPI drip (2) Hypertension Current Visit: Yes Status: Chronic Assessment and Plan: Since presentatino/admission normotensive, holding Norvasc home med in setting of acute bleed (3) Alcohol use Current Visit: Yes Status: Acute Assessment and Plan: Occasional binge drinking, occasional abstinence, was drinking that weekend Currently on CIWA protocol No overt agitation, tremor Ethyl alc <10 (4) DVT prophylaxis Current Visit: Yes Status: Acute Assessment and Plan: On intermittent pneumatic compression stockings (5) Anemia Current Visit: Yes Status: Acute Assessment and Plan: Likely acute blood loss anemia iron studies b12/folate GI bleed plan as above - Time Spent with Patient Total time spent is greater than 50% in coordination of care (as documented) at patient's floor/unit and/or counseling patient: Greater than 35 minutes Internal Medicine: Result - Labs CBC & Chem 7: 06/01/18 10:20 06/01/18 04:37 Labs: Short CBC 05/31/18 06/01/18 Range/Units 18:30 04:37 WBC 9.1 8.1 (4.3-11.1) K/mcL Hgb 6.0 L* 9.0 L D (12.9-16.9) g/dL Hct 18.6 L 27.0 L (37.5-50.1) % Plt Count 238 207 (140-400) K/mcL Neutrophils # 7.1 5.9 (1.6-8.9) K/mcL BMP 06/01/18 04:37 Sodium 140 Potassium 4.1 Chloride 111 H Carbon Dioxide 23 BUN 23 Creatinine 1.12 Glucose 95 Calcium 8.2 L - ABG Interpretation ABG results: PT/INR, D-dimer PT 11.0 Seconds (9.4-12.1) 06/01/18 04:37 Consult Discharge Plan - Plan Referrals: Tim Perez MD [Primary Care Provider] - <Abhilash Gastelum - Last Filed: 06/01/18 16:07> Hospitalist Progress Note - Encounter Date of Encounter: 06/01/18 - Exam Vitals: Temp Pulse Resp BP Pulse Ox 97.7 F 71 18 146/59 97 06/01/18 15:45 06/01/18 15:45 06/01/18 15:45 06/01/18 15:45 06/01/18 15:45 - Assessment and Plan (1) Esophagitis, [place] grade D Current Visit: Yes Status: Acute (2) Hypertension Current Visit: Yes Status: Chronic (3) DVT prophylaxis Current Visit: Yes Status: Acute (4) GI bleed Current Visit: Yes Status: Acute (5) Alcohol use Current Visit: Yes Status: Acute (6) Melena Current Visit: Yes Status: Acute (7) Diabetes mellitus Current Visit: No Status: Chronic (8) Anemia Current Visit: Yes Status: Acute (9) Alcohol abuse, uncomplicated Current Visit: Yes Status: Chronic - Time Spent with Patient Total time spent is greater than 50% in coordination of care (as documented) at patient's floor/unit and/or counseling patient: Internal Medicine: Result - Labs CBC & Chem 7: 06/01/18 10:20 06/01/18 04:37 Labs: Short CBC 05/31/18 06/01/18 06/01/18 Range/Units 18:30 04:37 10:20 WBC 9.1 8.1 8.8 (4.3-11.1) K/mcL Hgb 6.0 L* 9.0 L D 9.1 L (12.9-16.9) g/dL Hct 18.6 L 27.0 L 27.3 L (37.5-50.1) % Plt Count 238 207 226 (140-400) K/mcL Neutrophils # 7.1 5.9 6.7 (1.6-8.9) K/mcL BMP 06/01/18 04:37 Sodium 140 Potassium 4.1 Chloride 111 H Carbon Dioxide 23 BUN 23 Creatinine 1.12 Glucose 95 Calcium 8.2 L - ABG Interpretation ABG results: PT/INR, D-dimer PT 11.0 Seconds (9.4-12.1) 06/01/18 04:37 - Attending Attestation I examined this patient and my medical decision-making was reviewed with the Resident Physician on 06/01/18. I agree with the documented findings, disposition and treatment plan as described except to the extent set forth below. Mr White is currently admitted for acute GI bleed and anemia. He is to have EGD today. He remains moderate to high risk due to potential for worsening clinical status. Mr White just returned from EGD. He is feeling OK. Says he has ulcers. No fever or chills. Wants to go home as soon as he can. Exam alert comfortable sitting on edge of bed Mucus membranes moist Heart distant No wheeze abd soft I/P 1. Esophagitis 2. Anemia Further diagnoses and plan as above. Anticipate d/c tomorrow. <Malka MoiseRinku - Last Filed: 06/01/18 14:01> (2) Hypertension Qualifiers: Hypertension type: essential hypertension Qualified Code(s): I10 - Essential (primary) hypertension (5) Anemia Qualifiers: Anemia type: unspecified type Qualified Code(s): D64.9 - Anemia, unspecified <Abhilash Gastelum - Last Filed: 06/01/18 16:07> (2) Hypertension Qualifiers: Hypertension type: essential hypertension Qualified Code(s): I10 - Essential (primary) hypertension (4) GI bleed Qualifiers: GI bleed type/associated pathology: gastrointestinal hemorrhage with hematemesis Qualified Code(s): K92.0 - Hematemesis (7) Diabetes mellitus Qualifiers: Diabetes mellitus type: type 2 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
[2018-06-01] MEDS ORDERED: amLODIPine 5 MG TABLET PO SCH (09:00)
[2018-06-01 11:07] LABS: Basophils # 0.1 K/mcL (0.0-0.2); Basophils % 0.8 %; Eosinophils # 0.2 K/mcL (0.0-0.6); Hematocrit 27.3 % (37.5-50.1); Hemoglobin 9.1 g/dL (12.9-16.9); Immature Granulocytes % 0.8 % (0-4); Lymphocytes # 0.9 K/mcL (0.6-4.6); Lymphocytes % 10.4 %; Mean Corpuscular HGB Conc 33.3 g/dL (31.6-35.5); Mean Corpuscular Hemoglobin 30.4 pg (28.0-33.3); Mean Corpuscular Volume 91.3 fL (83.0-100.0); Mean Platelet Volume 9.4 fL (9.4-12.4); Monocytes # 0.9 K/mcL (0.0-1.3); Monocytes % 10.5 %; Neutrophils # 6.7 K/mcL (1.6-8.9); Platelet Count 226 K/mcL (140-400); Red Blood Count 2.99 M/mcL (4.19-5.50); Red Cell Distribution Width 15.6 % (11.5-14.5); Segmented Neutrophils % 75.5 %
[2018-06-01] MEDS ORDERED: *HR* Propofol 200 MG/20 ML VIAL IVP ONE (11:52)
--- NOTE | 2018-06-01 11:52 | Gastroenterology Consult Note ---
<Gatito Sigala - Last Filed: 06/01/18 11:50> Date of Encounter: 06/01/18 Time of Encounter: 10:30 - Assessment and plan (1) Upper GI bleed Current Visit: Yes Status: Acute Assessment and plan: Patient reports large amount of black vomit at home and melena. Plan for EGD today to r/o esophagitis, gastritis, duodenitis, PUD, MW tear, or AVM. Keep patient NPO for scope. (2) Anemia Current Visit: Yes Status: Acute Assessment and plan: On admission Hgb 6 and this AM Hgb 9. He has received 2 units PRBC. Continue to monitor CBC and transfuse PRBC as needed. Plan for EGD today to r/o esophagitis , gastritis, duodenitis, PUD, MW tear, or AVM. Qualifiers: Anemia type: unspecified type Qualified Code(s): D64.9 - Anemia, unspecified (3) Melena Current Visit: Yes Status: Acute Assessment and plan: Secondary to upper GI bleed. Continue to monitor. Plan for EGD today. - Time Spent With Patient Total time spent is greater than 50% in coordination of care (as documented) at patient's floor/unit and/or counseling patient: GI History of Present Illness - Data of Consult Patient: new to practice Consult date: 06/01/18 Requesting Physician: Abhilash Gastelum DO - Consult Narrative Reason for consult: Upper GI bleed History of present illness: Mr. White is a 83 year old male with PMHx of COPD, DM, HLD, HTN, who presented to the ED with complaints of shortness of breath that started last Tuesday and has worsened. Reports last Tuesday he was in his garage, drinking beer around 11 AM when he passed out. He reports he had "1 gallon" of black vomit during this time. He was taken to [place] [facility] and was evaluated for upper extremity injury and lip abrasion. CT head was negative, and he was discharged. He reports shortness or breath and fatigue worsened. He also reports multiple black bowel movements. He reports colonoscopy 10 years ago which was normal. He has never had EGD. He reports he will stop all alcohol and Aleve use. Procedures: Colonoscopy 10 years ago normal per patient report. NSAIDs: Aleve Anticoagulation: None Past Med Surg Social Fam HX - Past Medical History Medical history: COPD, diabetes, hyperlipidemia, hypertension, other Additional medical history: hypoglycemia Psychiatric history: anxiety, depression - Past Surgical History Additional surgical history: shoulder replacement - Social History Smoking Status: Former smoker Smokeless Tobacco Status: No Alcohol use: occasionally, recent Drug use: none - Family History Father History Unknown: Yes Living Status: Age at : 90 Cause of : heart attack Hx Family Cardiac Disorders: Yes Hx Family Respiratory Disorders: Yes Hx Family Cancer: No Hx Family GI Disorders: Yes Hx Family Genitourinary Disorders: Yes Hx Family Endocrine Disorder: No Hx Family Musculoskeletal Disorders: No Hx Family Neuromuscular Disorders: No Hx Family Neurologic Disorders: No Hx Family HEENT Disorders: No Hx Family Autoimmune Disorders: No Hx Family Reproductive Disorders: No Hx Family Psychosocial Disorders: No Hx Family Medical Disorders: No Mother Age at : 94 Cause of : heart attack Hx Family Cardiac Disorders: Yes Hx Family Respiratory Disorders: Yes Hx Family Cancer: No Hx Family GI Disorders: Yes Hx Family Genitourinary Disorders: Yes - Gastrointestinal Gastrointestinal: Present: as per HPI - Constitutional Constitutional: as per HPI - EENT Eyes: as per HPI Ears: Present: as per HPI Nose, mouth and throat: Present: as per HPI - Cardiovascular Cardiovascular ROS: Present: as per HPI - Respiratory Respiratory IM: Present: as per HPI - Genitourinary Genitourinary: Absent: change in color, Urinary frequency - Neurological ROS Neurological GI: Present: as per HPI - Hematologic/Lymphatic Hematologic/Lymphatic pediatric: Present: as per HPI - Musculoskeletal Musculoskeletal ROS GI: Present: as per HPI - Integumentary Integumentary GI: Present: as per HPI - Psychiatric ROS Psychiatric GI: Present: as per HPI - Endocrine Endocrine IM: Present: as per HPI - Constitutional Vitals: Temp Pulse Resp BP Pulse Ox 98.5 F 92 18 125/56 95 06/01/18 11:26 06/01/18 11:26 06/01/18 11:26 06/01/18 11:26 06/01/18 11:26 General appearance: Present: cooperative, A&O X 3, no acute distress, answers questions appropriately - Head Head exam: Present: atraumatic, normocephalic - Eye Eye exam: Present: normal appearance, sclera anicteric - ENT ENT exam: Present: mucous membranes dry - Neck Neck exam general surgery: Present: normal inspection, trachea midline - Respiratory Respiratory exam: Present: decreased breath sounds, CTAB. Absent: rales, rhonchi, wheezes - Cardiovascular Cardiovascular exam: Present: RRR, +S1, +S2 - GI/Abdominal GI/Abdominal exam: Present: soft, no peritoneal signs. Absent: distended, firm , guarding, tenderness - Rectal Rectal exam: Present: deferred - Extremities Exam Extremities exam: Present: warm - Neurological Exam Neurological exam: Present: no focal deficits - Psychiatric Psychiatric exam: Present: normal affect, normal mood - Skin Skin exam: Present: dry, intact, normal color, warm Results - Labs CBC & Chem 7: 06/01/18 10:20 06/01/18 04:37 Labs: Last Result Calcium 8.2 mg/dL (8.6-10.3) L 06/01/18 04:37 Entire Visit Hgb 9.1 g/dL (12.9-16.9) L 06/01/18 10:20 Hct 27.3 % (37.5-50.1) L 06/01/18 10:20 PT 11.0 Seconds (9.4-12.1) 06/01/18 04:37 - ABG ABG results: PT/INR, D-dimer PT 11.0 Seconds (9.4-12.1) 06/01/18 04:37 Consult Discharge Plan - Plan Referrals: Tim Perez MD [Primary Care Provider] - <FlorencePriyankaSathish - Last Filed: 06/01/18 18:14> Date of Encounter: 06/01/18 Time of Encounter: 12:45 - Time Spent With Patient Total time spent is greater than 50% in coordination of care (as documented) at patient's floor/unit and/or counseling patient: GI History of Present Illness - Data of Consult Requesting Physician: Abhilash Gastelum DO - Consult Narrative History of present illness: Mr. White is a 83 year old male - Constitutional Vitals: Temp Pulse Resp BP Pulse Ox 97.7 F 71 18 146/59 97 06/01/18 15:45 06/01/18 15:45 06/01/18 15:45 06/01/18 15:45 06/01/18 15:45 Results - Labs CBC & Chem 7: 06/01/18 10:20 06/01/18 04:37 Labs: Last Result Calcium 8.2 mg/dL (8.6-10.3) L 06/01/18 04:37 Entire Visit Hgb 9.1 g/dL (12.9-16.9) L 06/01/18 10:20 Hct 27.3 % (37.5-50.1) L 06/01/18 10:20 PT 11.0 Seconds (9.4-12.1) 06/01/18 04:37 - ABG ABG results: PT/INR, D-dimer PT 11.0 Seconds (9.4-12.1) 06/01/18 04:37 - Attending Attestation I have personally performed a face to face evaluation on this patient. I have reviewed and agree with the care plan. History and Exam by me shows: Patient 83-year-old male with a history of all colon abuse who was admitted because of the anemia and large amount of coffee-ground emesis. On examination patient alert awake not in acute distress abdomen is benign. Assessment: Patient with anemia and upper GI bleed . recommendation : EGD to rule out esophagitis/gastritis/peptic ulcer disease meanwhile follow H&H.
--- NOTE | 2018-06-01 12:28 | Anesthesia Evaluation PreOp ---
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 Received 2 units prbc, most recent Hgb >9.) Anesthesia History: No Prior Anesthetic Complications, Past Anesthesia Alcohol Use: heavy (would characterize his drinking habits as intermittent binging.), recent Drug use: none Medications and Allergies Albuterol Sulfate [Albuterol Inhaler] 2 puff IH Q6H PRN 01/18/16 [History] Ascorbic Acid [Vitamin C] 1,000 mg PO DAILY 01/18/16 [History] Ipratropium/Albuterol Neb [Duoneb] 3 ml IH Q6HR PRN 01/18/16 [History] Naproxen Sodium [Aleve] 220 mg PO BID 01/18/16 [History] amLODIPine [Norvasc] 10 mg PO DAILY 01/18/16 [History] Budesonide/Formoterol 160/4.5 [Symbicort 160/4.5] 2 puff IH BID 05/31/18 [ History] Ergocalciferol (VITAMIN D2) [Vitamin D2] 50,000 unit PO MO 05/31/18 [History] 3 Allergy/AdvReac Type Severity Reaction Status Date / Time Penicillins Allergy See Verified 05/31/18 16:56 Comments - Meds/Allergy Pre-op Review Medications Reviewed: Yes Allergies Reviewed: Yes Beta Blockers on Current Med List: No Anesthesia Results - Labs 06/01/18 10:20 06/01/18 04:37 - Imaging EKG: report reviewed (sinus rhythm) Anesthesia Exam Selected Entries 06/01/18 11:26 Temperature 98.5 F Pulse Rate 92 Respiratory Rate 18 Blood Pressure 125/56 O2 Sat by Pulse Oximetry 95 Oxygen Delivery Method Room Air Weight: 67 kg. NPO (# of Hours): over 8 hours - HEENT Pupil (Motor): Pupils equal Mallampati: II Teeth: Edentulous Oral Opening: Greater than 3 - Cardiac Rhythm: Regular Murmur: None - Pulmonary Breath Sounds: bilateral Rales (dyspneic at rest, on 3 L/ O2) Anesthesia Assess/Plan ASA Score: 3 Modified Marlene Scale for Level of Consciousness: Cooperative, oriented, and tranquil Anesthetic Plan: MAC Monitoring Plan: Standard Monitors Recovery Plan: Other (Discussed MAC anesthesia, agreed to proceed.)
[2018-06-01] MEDS ORDERED: 0.9 % Sodium Chloride 1,000 ML IVC SCH (13:00)
[2018-06-01 18:54] LABS: Basophils # 0.1 K/mcL (0.0-0.2); Basophils % 0.6 %; Eosinophils # 0.3 K/mcL (0.0-0.6); Eosinophils % 2.6 %; Hematocrit 26.8 % (37.5-50.1); Immature Granulocytes % 0.5 % (0-4); Mean Corpuscular HGB Conc 33.6 g/dL (31.6-35.5); Mean Corpuscular Hemoglobin 30.1 pg (28.0-33.3); Mean Corpuscular Volume 89.6 fL (83.0-100.0); Mean Platelet Volume 9.2 fL (9.4-12.4); Monocytes # 1.1 K/mcL (0.0-1.3); Monocytes % 11.2 %; Platelet Count 213 K/mcL (140-400); Red Blood Count 2.99 M/mcL (4.19-5.50); Red Cell Distribution Width 15.8 % (11.5-14.5); Segmented Neutrophils % 74.1 %
[2018-06-01] MEDS: Pantoprazole 40 MG VIAL IVP SCH (19:35)
[2018-06-02 03:50] LABS: Basophils # 0.1 K/mcL (0.0-0.2); Basophils % 0.6 %; Eosinophils # 0.3 K/mcL (0.0-0.6); Eosinophils % 3.6 %; Hematocrit 27.1 % (37.5-50.1); Hemoglobin 8.9 g/dL (12.9-16.9); Immature Granulocytes % 1.4 % (0-4); Lymphocytes % 12.8 %; Mean Corpuscular HGB Conc 32.8 g/dL (31.6-35.5); Mean Corpuscular Hemoglobin 30.3 pg (28.0-33.3); Mean Corpuscular Volume 92.2 fL (83.0-100.0); Mean Platelet Volume 9.2 fL (9.4-12.4); Monocytes # 1.1 K/mcL (0.0-1.3); Monocytes % 13.4 %; Neutrophils # 5.6 K/mcL (1.6-8.9); Platelet Count 229 K/mcL (140-400); Red Blood Count 2.94 M/mcL (4.19-5.50); Red Cell Distribution Width 15.9 % (11.5-14.5); Segmented Neutrophils % 68.2 %
[2018-06-02 04:12] LABS: % Iron Saturation 4 % (20-55); Iron 16 mcg/dL (65-175); Transferrin 266 mg/dL (203-362)
[2018-06-02 04:13] LABS: BUN/Creatinine Ratio 15 (6-26); Blood Urea Nitrogen 15 mg/dL (8-23); Calcium 8.3 mg/dL (8.6-10.3); Carbon Dioxide 23 mEq/L (23-29); Chloride 111 mEq/L (98-107); Glucose 89 mg/dL (70-105); Osmolality,Calculated 292 (280-300); Potassium 3.7 mEq/L (3.5-5.1); Sodium 141 mEq/L (136-145); eGFR For Non-African Americans > 60 (> 60)
[2018-06-02 04:43] LABS: Folate 17.7 ng/mL (3.0-16.0)
[2018-06-02] MEDS: Pantoprazole 40 MG VIAL IVP SCH (05:10)
[2018-06-02] MEDS: Budesonide/Formoterol 160/4.5 1 PUFF INH IH SCH (07:21)
[2018-06-02] MEDS: 0.9 % Sodium Chloride 1,000 ML IVC SCH (08:36)
--- NOTE | 2018-06-02 09:26 | Discharge Summary ---
<Lo Guerrero N - Last Filed: 06/02/18 17:13> - NOTES TO OUTPATIENT PROVIDER Notes to Outpatient Provider: Patient presented with coffee-ground emesis and tarry stools. EGD revealed grade D reflux esophagitis, medium-sized hiatal hernia, gastritis, and multiple non-bleeding duodenal ulcers. Biopsies were taken of gastritis. Patient was d/c with protonix and carafate with instructions [facility] EGD and colonoscopy. 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 Diabetes mellitus complication status: without complication Qualified Code(s): E11.9 - Type 2 diabetes mellitus without complications (3) GI bleed Priority: Primary Status: Acute Qualifiers: GI bleed type/associated pathology: gastrointestinal hemorrhage with hematemesis Qualified Code(s): K92.0 - Hematemesis (4) Alcohol use Priority: Secondary Status: Acute (5) Melena Priority: Primary Status: Acute (6) Anemia Priority: Secondary Status: Acute Qualifiers: Anemia type: other cause Other causes of anemia: acute posthemorrhagic Qualified Code(s): D62 - Acute posthemorrhagic anemia (7) Esophagitis, [place] grade D Priority: Secondary Status: Acute Hospital course: Mr. White is a 83 year old male who presented to outside ED on 05/31 complaining of progressively worsening SOB. He reportedly passed out several days prior while drinking beers in his garage. He also reported having had black vomit and multiple black bowel movements. He was found to have a hemoglobin of 6.0, and was transferred to [facility] for further evaluation and management. He received 2units via blood transfusion, with improvement in hemoglobin. PPI drip was initiated. GI was consulted, and recommended EGD to evaluate for esophagitis, gastritis, duodenitis, PUD, MW tears, or AVM. EGD revealed LA grade D reflux esophagitis, medium-sized hiatal hernia, gastritis, and multiple non-bleeding duodenal ulcers without stigmata. Gastritis was biopsied. Pathology results pending. Patient was discharged on omeprazole 40mg BID and carafate 1gm TID with meals. He was instructed to follow up with GI for repeat EGD and colonoscopy in 8 weeks due to his severe anemia and no colonoscopy in the last 10 years. He was also provided with PO iron supplementation. Patient had low phosphate on admission and was discharged with phosphate 250mg x 7days, with instruction to follow up with PCP after that for further evaluation and management. Discharge discussed with: patient, family, nurse - Time Spent with Patient Total time spent providing and/or coordinating discharge services: - Discharge Medications Prescriptions: Ferrous Sulfate [Iron] 325 mg PO BID #30 tablet Omeprazole [PriLOSEC] 40 mg PO BID #60 cap Sod Phos Di, [place]/K Phos [place] [Phosphorous 250 mg Tablet] 250 mg PO DAILY #7 tablet Sucralfate [Carafate] 1 gm PO TIDAC 30 Days oral.susp Sucralfate [Carafate] 1 gm PO TIDAC 30 Days oral.susp Home Medications: Albuterol Sulfate [Albuterol Inhaler] 2 puff IH Q6H PRN 01/18/16 [History] Ascorbic Acid [Vitamin C] 1,000 mg PO DAILY 01/18/16 [History] Ipratropium/Albuterol Neb [Duoneb] 3 ml IH Q6HR PRN 01/18/16 [History] Naproxen Sodium [Aleve] 220 mg PO BID 01/18/16 [History] amLODIPine [Norvasc] 10 mg PO DAILY 01/18/16 [History] Budesonide/Formoterol 160/4.5 [Symbicort 160/4.5] 2 puff IH BID 05/31/18 [ History] Ergocalciferol (VITAMIN D2) [Vitamin D2] 50,000 unit PO MO 05/31/18 [History] Ferrous Sulfate [Iron] 325 mg PO BID #30 tablet 06/02/18 [Rx] Omeprazole [PriLOSEC] 40 mg PO BID #60 cap 06/02/18 [Rx] Sod Phos Di, [place]/K Phos [place] [Phosphorous 250 mg Tablet] 250 mg PO DAILY #7 tablet 06/02/18 [Rx] Sucralfate [Carafate] 1 gm PO TIDAC 30 Days oral.susp 06/02/18 [Rx] Sucralfate [Carafate] 1 gm PO TIDAC 30 Days oral.susp 06/02/18 [Rx] Allergies/Adverse Reactions: 3 Allergy/AdvReac Type Severity Reaction Status Date / Time Penicillins Allergy See Verified 05/31/18 16:56 Comments Date of admission: 05/31/18 14:09 Primary care physician: Tim Perez MD Consults: 05/31/18 14:52 Consult to Nutrition [CONS] Routine Comment: Consulting Provider: NUTRITION Reason for Dietary Consult: PO Supplementation 05/31/18 18:21 Consult to Gastroenterology [CONS] Routine Consulting Provider: [facility] [place] Reason for Consult: acute upper GI bleed Call Completed: Yes Discharging clinician: Lo Guerrero Anticipated date of discharge: 06/02/18 - Constitutional Vitals: Temp Pulse Resp BP Pulse Ox 97.9 F 82 16 142/69 100 06/02/18 06:57 06/02/18 06:57 06/02/18 06:57 06/02/18 06:57 06/02/18 08:46 Exam: * General: Ill-appearing adult male sitting up on the side of the bed. He does not appear to be in acute distress. He is pleasant and answers questions appropriately. * HEENT: Atraumatic and normocephalic. Nasal canula in place. * Cardiovascular: Regular rate and rhythm. S1 and S2 present. No murmurs, gallops, or rubs. * Lungs: CTA bilaterally. Chest rises and falls symmetrically. Breath sounds are diffusely decreased bilaterally. * Abdomen: Abdomen is soft, nontender, and non-distended. * Extremities: No clubbing, cyanosis, or edema present. - Patient Status Disposition: Home, Self-Care Condition: Fair Functional capacity at discharge: independent ambulation Overall status at discharge: patient is progressing back to baseline - Discharge Instructions Follow Up With: Tim Perez MD [Primary Care Provider] - 06/07/18 12:00 pm Additional Instructions: Continue taking omeprazole 40mg twice daily. Take carafate three times per day with meals. Take iron twice daily. Take phosphorus 250mg daily for 7 days, then follow up with PCP for further management. Continue other home medications. Follow up with your PCP in 3-5 days. Follow up with GI for EGD and colonoscopy in 8 weeks as scheduled. Return to the emergency department if symptoms recur, if you notice dark stools , or if new concerns arise. 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 White is a 83 year old male - Time Spent with Patient Total time spent providing and/or coordinating discharge services: Date of admission: 05/31/18 14:09 Primary care physician: Tim Perez MD Consults: 05/31/18 14:52 Consult to Nutrition [CONS] Routine Comment: Consulting Provider: NUTRITION Reason for Dietary Consult: PO Supplementation 05/31/18 18:21 Consult to Gastroenterology [CONS] Routine Consulting Provider: [facility] [place] Reason for Consult: acute upper GI bleed Call Completed: Yes - Constitutional Vitals: Temp Pulse Resp BP Pulse Ox 98.1 F 99 18 123/56 97 06/02/18 10:48 06/02/18 10:48 06/02/18 10:48 06/02/18 10:48 06/02/18 10:48 - Attending Attestation I examined this patient and my medical decision-making was reviewed with the Resident Physician on 06/02/18. I agree with the documented findings, disposition and treatment plan as described except to the extent set forth below. Mr White has been admitted with acute GI bleed. His H/H has been stable and he is afebrile. He is ready for discharge home. Exam alert Comfortable Mucus membranes dry Heart reg No wheeze abd soft Plan D/C today
[2018-06-02 10:36] LABS: VBG Ionized Calcium 1.25 mmol/L (1.15-1.35); VBG PH 7.28 pH Units (7.32-7.42)
[2018-06-02 10:48] LABS: Basophils # 0.1 K/mcL (0.0-0.2); Basophils % 0.8 %; Eosinophils # 0.3 K/mcL (0.0-0.6); Hematocrit 30.6 % (37.5-50.1); Immature Granulocytes % 0.7 % (0-4); Lymphocytes % 9.8 %; Mean Corpuscular HGB Conc 32.7 g/dL (31.6-35.5); Mean Corpuscular Hemoglobin 29.9 pg (28.0-33.3); Mean Corpuscular Volume 91.3 fL (83.0-100.0); Mean Platelet Volume 9.3 fL (9.4-12.4); Monocytes # 0.9 K/mcL (0.0-1.3); Monocytes % 9.3 %; Neutrophils # 7.5 K/mcL (1.6-8.9); Platelet Count 278 K/mcL (140-400); Red Blood Count 3.35 M/mcL (4.19-5.50); Red Cell Distribution Width 16.1 % (11.5-14.5); Segmented Neutrophils % 76.4 %
[2018-06-02 10:49] VITALS: BP 123/56
== END 2018-06-02 15:00 | disposition home or self-care (01) | DRG 378 ==
LOC: 3ANU 14:09 → SUATTDRO 14:09
PROVIDERS: ADMIT Student in an Organized Health Care Education/Training Program; ATTEND Internal Medicine
PROC: ENDOEBX (2018-06-01 13:40)

== ENCOUNTER 2021-03-12 15:29 | Inpatient (IN) ==
[2021-03-12] MEDS ORDERED: Ondansetron 4 MG/2 ML VIAL IVP PRN (18:47)
[2021-03-12] MEDS ORDERED: Naloxone 0.4 MG/ML INJ IVP PRN (18:47)
[2021-03-12] MEDS ORDERED: *HR* HYDROcodone/Acet 5/325 mg TABLET PO PRN (18:47)
[2021-03-12] MEDS ORDERED: Perflutren Lipid Microsphere 1.3 ML in 0.9 % Sodium Chloride 8.7 ML IVP PRN (19:58)
[2021-03-12] MEDS ORDERED: Albuterol 2.5 MG/3 ML NEBULIZER IH PRN (19:59)
[2021-03-12] MEDS ORDERED: Albuterol 2.5 MG/3 ML NEBULIZER ONE (20:33)
[2021-03-12] MEDS: Albuterol 2.5 MG/3 ML NEBULIZER IH SCH ×2 (20:36→23:31)
[2021-03-12] MEDS: 0.9 % Sodium Chloride 1,000 ML IVC SCH (22:44)
[2021-03-12] MEDS: predniSONE 20 MG TABLET PO SCH (22:44)
[2021-03-12] MEDS: Azithromycin 250 MG TABLET PO SCH (22:44)
[2021-03-13 01:16] LABS: Hematocrit 33.9 % (37.5-50.1); Hemoglobin 11.2 g/dL (12.9-16.9); Mean Corpuscular Volume 93.9 fL (83.0-100.0); Mean Platelet Volume 9.4 fL (9.4-12.4); Platelet Count 214 K/mcL (140-400); Red Blood Count 3.61 M/mcL (4.19-5.50); White Blood Count 13.5 K/mcL (4.3-11.1)
[2021-03-13 01:35] LABS: BUN/Creatinine Ratio 19 (6-26); Blood Urea Nitrogen 26 mg/dL (8-23); Carbon Dioxide 21 mEq/L (23-29); Chloride 101 mEq/L (98-107); Glucose 100 mg/dL (70-105); Magnesium 2.4 mg/dL (1.6-2.6); Osmolality,Calculated 295 (280-300); Phosphorous 4.3 mg/dL (2.7-4.5); Potassium 4.1 mEq/L (3.5-5.1); Sodium 140 mEq/L (136-145); eGFR For African Americans > 60 (> 60); eGFR For Non-African Americans 50 (> 60)
[2021-03-13 01:37] LABS: Troponin I 0.05 ng/mL (< 0.04)
[2021-03-13] MEDS: Albuterol 2.5 MG/3 ML NEBULIZER IH SCH ×6 (04:04→23:32)
[2021-03-13] MEDS: Levothyroxine 25 MCG TABLET PO SCH (05:56)
[2021-03-13] MEDS ORDERED: Regadenoson 0.4 MG/5 ML SYRINGE IVP ONE (06:17)
[2021-03-13] MEDS: predniSONE 20 MG TABLET PO SCH (10:14)
[2021-03-13] MEDS: amLODIPine 5 MG TABLET PO SCH (10:14)
[2021-03-13] MEDS: Azithromycin 250 MG TABLET PO SCH (10:14)
[2021-03-13] MEDS: Aspirin 81 MG TAB.CHEW PO SCH (10:14)
[2021-03-13 12:38] LABS: Adenovirus F 40/41 PCR Not detected (Not detect); Astrovirus PCR Not detected (Not detect); C.difficile Toxin A/B Gene PCR Not detected (Not detect); Campylobacter by PCR Not detected (Not detect); Cryptosporidium by PCR Not detected (Not detect); Cyclospora cayetanensis PCR Not detected (Not detect); E. coli O157 by PCR Not detected (Not detect); Entamoeba histolytica PCR Not detected (Not detect); Enteroaggregative E.coli(EAEC) Not detected (Not detect); Enteropathogenic E.coli(EPEC) Not detected (Not detect); Enterotoxigenic E.coli (ETEC) Not detected (Not detect); Giardia lamblia PCR Not detected (Not detect); Norovirus GI/GII PCR Not detected (Not detect); Plesiomonas shigelloides PCR Not detected (Not detect); Rotavirus A PCR Not detected (Not detect); Salmonella PCR Not detected (Not detect); Sapovirus PCR Not detected (Not detect); Shig/EnteroinvasiveE coli EIEC Not detected (Not detect); Shigalike tox-prod E coli STEC Not detected (Not detect); Vibrio PCR Not detected (Not detect); Vibrio cholerae PCR Not detected (Not detect); Yersinia enterocolitica PCR Not detected (Not detect)
[2021-03-13] MEDS: 0.9 % Sodium Chloride 1,000 ML IVC SCH ×2 (14:26→15:16)
[2021-03-13] MEDS: carvediloL 6.25 MG TABLET PO SCH (17:36)
[2021-03-13] MEDS: Budesonide/Formoterol 160/4.5 1 PUFF INH IH SCH (23:32)
[2021-03-14] MEDS: Albuterol 2.5 MG/3 ML NEBULIZER IH SCH ×6 (03:38→23:20)
[2021-03-14] MEDS: Levothyroxine 25 MCG TABLET PO SCH (05:09)
[2021-03-14] MEDS: 0.9 % Sodium Chloride 1,000 ML IVC SCH (05:09)
[2021-03-14] MEDS: Budesonide/Formoterol 160/4.5 1 PUFF INH IH SCH ×2 (07:45→19:33)
[2021-03-14 08:43] LABS: Basophils % 0.1 %; Hematocrit 31.8 % (37.5-50.1); Hemoglobin 10.2 g/dL (12.9-16.9); Immature Granulocytes % 0.6 % (0-4); Lymphocytes # 0.6 K/mcL (0.6-4.6); Lymphocytes % 4.1 %; Mean Corpuscular HGB Conc 32.1 g/dL (31.6-35.5); Mean Corpuscular Hemoglobin 29.7 pg (28.0-33.3); Mean Corpuscular Volume 92.7 fL (83.0-100.0); Mean Platelet Volume 9.6 fL (9.4-12.4); Monocytes % 6.8 %; Neutrophils # 13.2 K/mcL (1.6-8.9); Platelet Count 216 K/mcL (140-400); Red Blood Count 3.43 M/mcL (4.19-5.50); Red Cell Distribution Width 13.9 % (11.5-14.5); Segmented Neutrophils % 88.4 %
[2021-03-14 09:05] LABS: BUN/Creatinine Ratio 28 (6-26); Blood Urea Nitrogen 33 mg/dL (8-23); Calcium 8.7 mg/dL (8.6-10.3); Carbon Dioxide 25 mEq/L (23-29); Chloride 103 mEq/L (98-107); Glucose 107 mg/dL (70-105); Osmolality,Calculated 288 (280-300); Potassium 3.9 mEq/L (3.5-5.1); Sodium 135 mEq/L (136-145); eGFR For African Americans > 60 (> 60); eGFR For Non-African Americans 58 (> 60)
[2021-03-14] MEDS ORDERED: Regadenoson 0.4 MG/5 ML SYRINGE IVP ONE (11:16)
[2021-03-14] MEDS: Azithromycin 250 MG TABLET PO SCH (12:17)
[2021-03-14] MEDS: carvediloL 6.25 MG TABLET PO SCH ×2 (12:18→17:58)
[2021-03-14] MEDS: Aspirin 81 MG TAB.CHEW PO SCH (12:18)
[2021-03-14] MEDS: amLODIPine 5 MG TABLET PO SCH (12:19)
[2021-03-14] MEDS: predniSONE 20 MG TABLET PO SCH (12:19)
[2021-03-15] MEDS: 0.9 % Sodium Chloride 1,000 ML IVC SCH ×2 (02:55→16:47)
[2021-03-15] MEDS: Albuterol 2.5 MG/3 ML NEBULIZER IH SCH ×6 (03:43→23:20)
[2021-03-15 05:38] LABS: Basophils % 0.1 %; Immature Granulocytes % 0.5 % (0-4); Lymphocytes # 0.4 K/mcL (0.6-4.6); Lymphocytes % 3.7 %; Mean Corpuscular HGB Conc 33.3 g/dL (31.6-35.5); Mean Corpuscular Volume 92.9 fL (83.0-100.0); Mean Platelet Volume 9.5 fL (9.4-12.4); Monocytes # 0.7 K/mcL (0.0-1.3); Monocytes % 6.7 %; Neutrophils # 9.7 K/mcL (1.6-8.9); Platelet Count 208 K/mcL (140-400); Red Blood Count 3.23 M/mcL (4.19-5.50); Red Cell Distribution Width 13.8 % (11.5-14.5); White Blood Count 10.9 K/mcL (4.3-11.1)
[2021-03-15 05:41] LABS: Estimated Average Glucose 111 mg/dl; Hemoglobin A1C 5.5 %
[2021-03-15] MEDS: Levothyroxine 25 MCG TABLET PO SCH (05:41)
[2021-03-15 05:52] LABS: BUN/Creatinine Ratio 29 (6-26); Blood Urea Nitrogen 32 mg/dL (8-23); Calcium 8.5 mg/dL (8.6-10.3); Carbon Dioxide 25 mEq/L (23-29); Chloride 108 mEq/L (98-107); Glucose 119 mg/dL (70-105); Osmolality,Calculated 292 (280-300); Potassium 3.9 mEq/L (3.5-5.1); Sodium 137 mEq/L (136-145); eGFR For African Americans > 60 (> 60); eGFR For Non-African Americans > 60 (> 60)
[2021-03-15] MEDS: Budesonide/Formoterol 160/4.5 1 PUFF INH IH SCH ×2 (07:37→20:14)
[2021-03-15] MEDS: Azithromycin 250 MG TABLET PO SCH (09:03)
[2021-03-15] MEDS: carvediloL 6.25 MG TABLET PO SCH ×2 (09:03→16:47)
[2021-03-15] MEDS: predniSONE 20 MG TABLET PO SCH (09:04)
[2021-03-15] MEDS: Aspirin 81 MG TAB.CHEW PO SCH (09:04)
[2021-03-15] MEDS: amLODIPine 5 MG TABLET PO SCH (09:05)
[2021-03-16] MEDS: Albuterol 2.5 MG/3 ML NEBULIZER IH SCH ×6 (03:33→23:07)
[2021-03-16 05:01] LABS: BUN/Creatinine Ratio 28 (6-26); Blood Urea Nitrogen 33 mg/dL (8-23); Calcium 8.3 mg/dL (8.6-10.3); Carbon Dioxide 26 mEq/L (23-29); Chloride 108 mEq/L (98-107); Glucose 126 mg/dL (70-105); Osmolality,Calculated 293 (280-300); Sodium 137 mEq/L (136-145); eGFR For African Americans > 60 (> 60); eGFR For Non-African Americans 60 (> 60)
[2021-03-16] MEDS: Levothyroxine 25 MCG TABLET PO SCH (05:19)
[2021-03-16] MEDS: Budesonide/Formoterol 160/4.5 1 PUFF INH IH SCH ×2 (07:10→19:57)
[2021-03-16] MEDS: carvediloL 6.25 MG TABLET PO SCH ×2 (07:45→17:26)
[2021-03-16] MEDS: Aspirin 81 MG TAB.CHEW PO SCH (07:46)
[2021-03-16] MEDS: amLODIPine 5 MG TABLET PO SCH (07:46)
[2021-03-16] MEDS: predniSONE 20 MG TABLET PO SCH (07:47)
[2021-03-16] MEDS: Azithromycin 250 MG TABLET PO SCH (07:47)
[2021-03-16] MEDS: 0.9 % Sodium Chloride 1,000 ML IVC SCH (07:52)
[2021-03-17] MEDS: Albuterol 2.5 MG/3 ML NEBULIZER IH SCH ×3 (04:10→11:11)
[2021-03-17] MEDS: 0.9 % Sodium Chloride 1,000 ML IVC SCH (05:33)
[2021-03-17] MEDS: Levothyroxine 25 MCG TABLET PO SCH (05:33)
[2021-03-17] MEDS: Budesonide/Formoterol 160/4.5 1 PUFF INH IH SCH (07:10)
[2021-03-17] MEDS: carvediloL 6.25 MG TABLET PO SCH (07:39)
[2021-03-17] MEDS: amLODIPine 5 MG TABLET PO SCH (07:39)
[2021-03-17] MEDS: Aspirin 81 MG TAB.CHEW PO SCH (07:39)
[2021-03-17 11:53] VITALS: BP 129/74
== END 2021-03-17 14:24 | disposition other institution (70) | DRG 394 ==
LOC: 3BNU → SUATTDRO 18:21
PROVIDERS: ADMIT Internal Medicine; ATTEND Registered Nurse

== ENCOUNTER 2022-03-29 21:25 | Inpatient (IN) ==
[2022-03-30] MEDS ORDERED: Naloxone 0.4 MG/ML INJ IVP PRN (02:43)
[2022-03-30] MEDS ORDERED: Acetaminophen 325 MG TABLET PO PRN (02:43)
[2022-03-30] MEDS ORDERED: *HR* OxyCODONE Immed Rel 5 MG TABLET PO PRN (02:43)
[2022-03-30] MEDS ORDERED: Ondansetron 4 MG/2 ML VIAL IVP PRN (02:43)
[2022-03-30] MEDS ORDERED: Melatonin 3 MG TABLET PO PRN (02:43)
[2022-03-30] MEDS ORDERED: *HR* Promethazine 25 MG/ML VIAL IM PRN (02:43)
[2022-03-30] MEDS ORDERED: *HR* HYDROcodone/Acet 5/325 mg TABLET PO PRN (02:43)
[2022-03-30] MEDS ORDERED: Ipratropium/Albuterol Neb 3 ML IH PRN (03:01)
[2022-03-30] MEDS: Ipratropium/Albuterol Neb 3 ML IH SCH ×6 (03:33→23:14)
[2022-03-30 05:43] LABS: Basophils % 0.3 %; Eosinophils % 0.5 %; Hematocrit 28.2 % (37.5-50.1); Hemoglobin 8.6 g/dL (12.9-16.9); Immature Granulocytes % 0.5 % (0-4); Lymphocytes # 0.6 K/mcL (0.6-4.6); Lymphocytes % 6.8 %; Mean Corpuscular HGB Conc 30.5 g/dL (31.6-35.5); Mean Corpuscular Hemoglobin 29.4 pg (28.0-33.3); Mean Corpuscular Volume 96.2 fL (83.0-100.0); Mean Platelet Volume 9.1 fL (9.4-12.4); Monocytes # 0.5 K/mcL (0.0-1.3); Monocytes % 5.3 %; Neutrophils # 7.7 K/mcL (1.6-8.9); Platelet Count 205 K/mcL (140-400); Red Blood Count 2.93 M/mcL (4.19-5.50); Red Cell Distribution Width 13.9 % (11.5-14.5); Segmented Neutrophils % 86.6 %; White Blood Count 8.9 K/mcL (4.3-11.1)
[2022-03-30 05:53] LABS: INR 1.1; Prothrombin Time 11.7 Seconds (9.4-12.1)
[2022-03-30 06:03] LABS: BUN/Creatinine Ratio 18 (6-26); Blood Urea Nitrogen 21 mg/dL (8-23); Calcium 8.6 mg/dL (8.6-10.3); Carbon Dioxide 27 mEq/L (23-29); Chloride 104 mEq/L (98-107); Chol/HDL Ratio 2.7 (0-4.9); Cholesterol 165 mg/dL (< 200); Glucose 94 mg/dL (70-105); HDL Cholesterol 62 mg/dL (40-59); LDL Cholesterol,Calculated 89 mg/dL (< 100); Magnesium 1.7 mg/dL (1.6-2.6); Osmolality,Calculated 287 (280-300); Phosphorous 4.4 mg/dL (2.7-4.5); Sodium 137 mEq/L (136-145); Total Protein 5.9 g/dL (6.4-8.9); Triglycerides 69 mg/dL (< 150); eGFR For African Americans > 60 (> 60); eGFR For Non-African Americans 59 (> 60)
[2022-03-30] MEDS: MethylPREDNISolone 40 MG/ML VIAL IVP SCH ×3 (08:30→23:44)
[2022-03-30] MEDS: cefTRIAXone 1,000 MG in Water for inj. (sterile) 10 ML IVP SCH (11:26)
[2022-03-30 17:09] LABS: RBC,Pleural Fluid < 2000 RBC/mcL
[2022-03-30 17:28] LABS: Total Protein,Pleural Fluid 2.6 g/dL
[2022-03-30 18:14] LABS: Appearance of Pleural Fl Clear (Clear)
[2022-03-30] MEDS ORDERED: Azithromycin 500 MG in 0.9 % Sodium Chloride 250 ML IVPB SCH (21:00)
[2022-03-30 21:48] LABS: Basophils,Pleural Fluid 0 %; Eosinophils,Pleural Fluid 0 %
[2022-03-31 02:54] LABS: Hematocrit 26.5 % (37.5-50.1); Hemoglobin 8.3 g/dL (12.9-16.9); Mean Corpuscular HGB Conc 31.3 g/dL (31.6-35.5); Mean Corpuscular Hemoglobin 29.2 pg (28.0-33.3); Mean Corpuscular Volume 93.3 fL (83.0-100.0); Mean Platelet Volume 9.7 fL (9.4-12.4); Platelet Count 216 K/mcL (140-400); Red Blood Count 2.84 M/mcL (4.19-5.50); Red Cell Distribution Width 14.2 % (11.5-14.5); White Blood Count 6.4 K/mcL (4.3-11.1)
[2022-03-31 03:27] LABS: BUN/Creatinine Ratio 21 (6-26); Blood Urea Nitrogen 27 mg/dL (8-23); Calcium 9.5 mg/dL (8.6-10.3); Carbon Dioxide 27 mEq/L (23-29); Chloride 104 mEq/L (98-107); Glucose 112 mg/dL (70-105); Osmolality,Calculated 296 (280-300); Potassium 4.9 mEq/L (3.5-5.1); Sodium 140 mEq/L (136-145); eGFR For African Americans > 60 (> 60); eGFR For Non-African Americans 54 (> 60)
[2022-03-31] MEDS: Ipratropium/Albuterol Neb 3 ML IH SCH ×6 (03:33→23:03)
[2022-03-31] MEDS: MethylPREDNISolone 40 MG/ML VIAL IVP SCH ×3 (10:29→23:20)
[2022-03-31] MEDS: cefTRIAXone 1,000 MG in Water for inj. (sterile) 10 ML IVP SCH (10:29)
[2022-03-31] MEDS: *HR* Heparin 5,000 UNIT/ML VIAL SQ SCH (23:20)
[2022-04-01] MEDS: Ipratropium/Albuterol Neb 3 ML IH SCH ×4 (03:35→15:39)
[2022-04-01 05:56] LABS: Hematocrit 27.3 % (37.5-50.1); Hemoglobin 8.7 g/dL (12.9-16.9); Mean Corpuscular HGB Conc 31.9 g/dL (31.6-35.5); Mean Corpuscular Hemoglobin 29.8 pg (28.0-33.3); Mean Corpuscular Volume 93.5 fL (83.0-100.0); Mean Platelet Volume 9.8 fL (9.4-12.4); Platelet Count 204 K/mcL (140-400); Red Blood Count 2.92 M/mcL (4.19-5.50); Red Cell Distribution Width 14.8 % (11.5-14.5)
[2022-04-01 05:57] LABS: White Blood Count 12.9 K/mcL (4.3-11.1)
[2022-04-01] MEDS ORDERED: Levothyroxine 25 MCG TABLET PO SCH (06:00)
[2022-04-01 06:11] LABS: BUN/Creatinine Ratio 29 (6-26); Blood Urea Nitrogen 32 mg/dL (8-23); Calcium 9.4 mg/dL (8.6-10.3); Carbon Dioxide 32 mEq/L (23-29); Chloride 106 mEq/L (98-107); Glucose 120 mg/dL (70-105); Osmolality,Calculated 302 (280-300); Potassium 4.3 mEq/L (3.5-5.1); Sodium 142 mEq/L (136-145); eGFR For African Americans > 60 (> 60); eGFR For Non-African Americans > 60 (> 60)
[2022-04-01] MEDS: *HR* Heparin 5,000 UNIT/ML VIAL SQ SCH ×2 (06:29→14:44)
[2022-04-01] MEDS ORDERED: amLODIPine 5 MG TABLET PO SCH (09:00)
[2022-04-01] MEDS ORDERED: Tiotropium 10 INH DOSE IH SCH (10:00)
[2022-04-01] MEDS: MethylPREDNISolone 40 MG/ML VIAL IVP SCH (10:21)
[2022-04-01] MEDS: carvediloL 6.25 MG TABLET PO SCH ×2 (10:23→17:32)
[2022-04-01 17:02] VITALS: BP 136/79; PULSE 71; TEMP 97.4; O2SAT 100
[2022-04-01] MEDS ORDERED: MethylPREDNISolone 40 MG/ML VIAL IVP SCH (20:00)
[2022-04-01 22:09] LABS: Fluid Source for Cholesterol PLEURAL FLUID
[2022-04-02 10:44] LABS: Cholesterol,Body Fluid 33 mg/dL
== END 2022-04-01 18:49 | disposition hospice, home (50) | DRG 190 ==
LOC: 3ANU → SUATTDRO 03-30 12:17
PROVIDERS: ADMIT Internal Medicine; ATTEND Student in an Organized Health Care Education/Training Program